=== PATIENT | male | born 1970 | race Two or more races ===

== ENCOUNTER 2020-11-14 20:05 | Emergency (ER) | payer OTHER ==
[~2020-11-14] VITALS: Ht 160 cm; Wt 76.2 kg
[2020-11-14] MEDS ORDERED: KETO10TA2 PO (21:37)
[2020-11-14] MEDS ORDERED: NORFLEX100MG PO (21:37)
== END 2020-11-14 21:57 | disposition home or self-care (01) ==
LOC: ER 20:05
DX: M25.551 Pain in right hip (principal)